=== PATIENT | female | born 1970 | race Asian ===

== ENCOUNTER 2025-03-20 12:44 | Emergency (ER) | payer OTHER, MEDICAID ==
[~2025-03-20] VITALS: Ht 154.9 cm; Wt 66.0 kg
[2025-03-20 12:49] VITALS: O2SAT 98
[2025-03-20] MEDS: ACETAMINOPHEN 325MG TABLET PO ONE (13:04)
[2025-03-20] MEDS ORDERED: IBUP-1455 MT (14:13)
[2025-03-20] MEDS ORDERED: CYCL10TA21 MT (14:13)
[2025-03-20 14:22] VITALS: BP 130/60; PULSE 70; RESP 16; TEMP 36.9; O2SAT 98
== END 2025-03-20 14:29 | disposition home or self-care (01) ==
LOC: ER 13:35
DX: M25.511 Pain in right shoulder (principal); M25.552 Pain in left hip; M79.601 Pain in right arm; R51.9 Headache, unspecified; R03.0 Elevated blood-pressure reading, without diagnosis of hypertension; V43.52XA Car driver injured in collision with other type car in traffic accident, initial encounter; Y93.89 Activity, other specified; Y92.410 Unspecified street and highway as the place of occurrence of the external cause; Y99.8 Other external cause status
CPT/HCPCS: 72170; 73030; 73060; 73090; 99284